=== PATIENT | female | born 1980 | race Hispanic/Latino ===

== ENCOUNTER 2024-02-19 18:13 | Emergency (ER) | payer SELFPAY ==
[2024-02-19] MEDS ORDERED: IBUPROFEN 400 MG TAB ONE (19:15)
--- NOTE | 2024-02-19 20:08 | RAD REPORT ---
EXAM DESCRIPTION: RAD - Foot Left 3 View - 02/19/2024 7:50 pm CLINICAL HISTORY: PAIN COMPARISON: No comparisons FINDINGS/IMPRESSION: No acute fracture. No malalignment. No significant focal degenerative changes.
--- NOTE | 2024-02-19 20:18 | EDPHYS ---
Physician Documentation [facility] Name: Mary Ann Lilly Age: 43 yrs Sex: Female : 1980 Arrival Date: 02/19/2024 Time: 18:13 Bed 15 Private MD: ED Physician Al Blanton HPI: 02/18 19:05 This 43 yrs old Female presents to ER via Wheelchair with complaints of Foot cp Injury. 19:05 The patient presents with an injury, pain, that is acute. The complaints affect the cp left foot. Context: resulted from a mis-step, the patient is not able to bear weight, the patient is not able to ambulate. Onset: The symptoms/episode began/occurred today. Associated signs and symptoms: The patient has no apparent associated signs or symptoms. 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 - Infectious Disease History:: Denies. - Social history:: Smoking status: Patient denies any tobacco usage or history of. ROS: 19:10 MS/extremity: Positive for pain, tenderness, of the left foot, Negative for deformity, cp 19:10 Neck: Negative for pain with movement, pain at rest, cp 19:10 Back: Negative for pain at rest, pain with movement, 19:10 All other systems are negative, Exam: 19:15 Constitutional: The patient appears in no acute distress, alert, awake, non-toxic, well cp developed, well nourished, uncomfortable, 19:15 Musculoskeletal/extremity: Extremities: noted in the left foot: pain, tenderness along lateral proximal foot, There is no evidence of deformity, Perfusion: the extremity is normally perfused throughout, the left foot Sensation intact. 19:15 Neuro: Orientation: to person, place \T\ time. Mentation: is normal, Motor: moves all fours, strength is normal, Vital Signs: 18:37 BP 147 / 96; Pulse 106; Resp 20 S; Temp 97.6(TE); Pulse Ox 98% on R/A; Weight 86.18 kg aa5 (R); Height 5 ft. 3 in. (R); 20:45 BP 136 / 77; Pulse 84; Resp 16; Pulse Ox 99% on R/A; pc2 18:37 Body Mass Index 33.66 (86.18 kg, 160.02 cm) aa5 MDM: 18:38 Patient medically screened. cp 20:17 Data reviewed: vital signs, nurses notes, radiologic studies, plain films. cp 20:17 I considered the following discharge prescriptions or medication management in the cp emergency department Medications were administered in the Emergency Department. See MAR. Independent interpretation of the following test(s) in the Emergency Department X-Ray: My interpretation is images of left foot negative for fracture. Counseling: I had a detailed discussion with the patient and/or guardian regarding the historical points, exam findings, and any diagnostic results supporting the discharge/admit diagnosis, radiology results, the need for outpatient follow up, a orthopedic surgeon, to return to the emergency department if symptoms worsen or persist or if there are any questions or concerns that arise at home. Response to treatment: the patient's symptoms have mildly improved after treatment, and as a result, I will discharge patient. 02/18 19:00 Order name: XRAY Foot LEFT 3 View; Complete Time: 20:16 cp 02/18 19:00 Order name: Ice pack; Complete Time: 19:34 cp 02/18 20:15 Order name: Juan Diego Wrap; Complete Time: 21:16 cp 02/18 20:15 Order name: Crutches; Complete Time: 21:16 cp Administered Medications: 19:34 Drug: Ibuprofen PO 800 mg PO once Route: PO; pc2 20:37 Follow up: Response: No adverse reaction pc2 Disposition Summary: 02/19/24 20:18 Discharge Ordered Notes: Location: Home cp Problem: new cp Symptoms: have improved cp Condition: Stable cp Diagnosis - Other sprain of left foot cp Followup: cp - With: Uziel Leary MD - When: 5 - 6 days - Reason: pain continues Discharge Instructions: - Discharge Summary Sheet cp - Elastic Bandage and RICE Therapy cp - Foot Sprain cp Forms: - Medication Reconciliation Form cp - Antibiotic Education cp - Prescription Opioid Use cp - Patient Portal Instructions cp - Leadership Thank You Letter cp Prescriptions: - Anaprox DS 550 mg Oral Tablet - take 1 tablet ORAL route every 12 hours As needed; 20 tablet; Refills: 0, cp Product Selection Permitted Signatures: Dispatcher [employer] EDMary Carmen Wilkerson, RN RN aa5 Al Murillo PA PA cp Coleman, Pam, RN RN pc2 Corrections: (The following items were deleted from the chart) 19:00 19:00 Foot Left 3 View+RAD.RAD.BRZ ordered. EDMS EDMS
--- NOTE | 2024-02-19 20:18 | ER ---
Nurse's Notes [facility] Name: Mary Ann Lilly Age: 43 yrs Sex: Female : 1980 Arrival Date: 02/19/2024 Time: 18:13 Bed 15 Private MD: Diagnosis: Other sprain of left foot Presentation: 02/18 18:37 Chief complaint: Patient states: twisted left foot standing up from desk and heard a aa5 "pop". pt c/o pain to left foot. 18:37 Coronavirus screen: At this time, the client does not indicate any symptoms associated aa5 with coronavirus-19. Ebola Screen: Patient denies travel to an Ebola-affected area in the 21 days before illness onset. Initial Sepsis Screen: Does the patient meet any 2 criteria? No. Patient's initial sepsis screen is negative. Does the patient have a suspected source of infection? No. Patient's initial sepsis screen is negative. Risk Assessment: Do you want to hurt yourself or someone else? Patient reports no desire to harm self or others. Onset of symptoms was February 19, 2024. 18:37 Acuity: GUILHERME 4 aa5 18:37 Method Of Arrival: Wheelchair aa5 Triage Assessment: 19:35 General: Appears in no apparent distress. well groomed, well developed, Behavior is pc2 calm, cooperative, appropriate for age. Pain: Complains of pain in left ankle Pain currently is 8 out of 10 on a pain scale. EENT: No signs and/or symptoms were reported regarding the EENT system. Neuro: Level of Consciousness is awake, alert, obeys commands, Oriented to person, place, time, situation. Respiratory: Airway is patent Respiratory effort is even, unlabored, Respiratory pattern is regular, symmetrical. GI: No signs and/or symptoms were reported involving the gastrointestinal system. : No signs and/or symptoms were reported regarding the genitourinary system. Derm: No signs and/or symptoms reported regarding the dermatologic system. Musculoskeletal: Circulation, motion, and sensation intact. Swelling present in left ankle Reports pain in left ankle rolled ankle walking. Injury Description: rolled ankle. 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 - Infectious Disease History:: Denies. - Social history:: Smoking status: Patient denies any tobacco usage or history of. Screenin:45 [facility] ED Fall Risk Assessment (Adult) History of falling in the last 3 months, db including since admission No falls in past 3 months (0 pts) Confusion or Disorientation No (0 pts) Intoxicated or Sedated No (0 pts) Impaired Gait No (0 pts) Mobility Assist Device Used No (0 pt) Altered Elimination No (0 pt) Score/Fall Risk Level 0 - 2 = Low Risk Oriented to surroundings, Maintained a safe environment. Abuse screen: Denies threats or abuse. Denies injuries from another. Nutritional screening: No deficits noted. Tuberculosis screening: No symptoms or risk factors identified. Assessment: 18:45 Reassessment: Patient appears in no apparent distress at this time. Patient and/or db family updated on plan of care and expected duration. Pain level reassessed. Patient is alert, oriented x 3, equal unlabored respirations, skin warm/dry/pink. General: Appears in no apparent distress. comfortable, Behavior is calm, cooperative. Neuro: Level of Consciousness is awake, alert, obeys commands, Oriented to person, place, time, situation. Vital Signs: 18:37 BP 147 / 96; Pulse 106; Resp 20 S; Temp 97.6(TE); Pulse Ox 98% on R/A; Weight 86.18 kg aa5 (R); Height 5 ft. 3 in. (R); 20:45 BP 136 / 77; Pulse 84; Resp 16; Pulse Ox 99% on R/A; pc2 18:37 Body Mass Index 33.66 (86.18 kg, 160.02 cm) aa5 ED Course: 18:22 Patient arrived in ED. mg5 18:37 Arm band placed on. aa5 18:38 Al Murillo PA is PHCP. cp 18:38 Al Blanton MD is Attending Physician. cp 18:43 Triage completed. aa5 18:45 Romelia Hanson, DAMARIS is Primary Nurse. db 18:45 Allergy band placed. Bed in low position. Call light in reach. Side rails up X 1. Pulse db ox on. NIBP on. Pillow given. 19:08 Report given to MEENA. db 19:09 Meena Rush, RN is Primary Nurse. pc2 19:34 Provided Education on: POC and time frame. pc2 19:34 X-ray(s) taken. pc2 19:34 No provider procedures requiring assistance completed. pc2 19:52 XRAY Foot LEFT 3 View In Process Unspecified. EDMS 20:17 Uziel Leary MD is Referral Physician. cp 20:50 Patient did not have IV access during this emergency room visit. pc2 20:50 Crutch training done. Juan Diego wrap to left ankle. pc2 Administered Medications: 19:34 Drug: Ibuprofen PO 800 mg PO once Route: PO; pc2 20:37 Follow up: Response: No adverse reaction pc2 Medication: 19:34 VIS not applicable for this client. pc2 Outcome: 20:18 Discharge ordered by MD. cp 20:50 Discharged to home ambulatory, with crutches, with family, pc2 20:50 Condition: stable 20:50 Discharge instructions given to patient, family, Instructed on discharge instructions, follow up and referral plans. medication usage, crutch walking, Demonstrated understanding of instructions, follow-up care, medications, crutch walking, Prescriptions given X 1, 21:17 Patient left the ED. pc2 Signatures: Dispatcher [employer] EDVA Mary Carmen Melara, RN RN aa5 Al Murillo PA PA cp Romelia Hanson, RN RN Hallie Lynn mg5 Meena Rush, RN RN pc2
[2024-02-19 21:21] VITALS: TEMP 97.6
[2024-02-19 21:23] VITALS: BP 136/77; O2SAT 99
== END 2024-02-19 21:17 | disposition home or self-care (01) ==
LOC: ER 18:13
DX: S93.692A Other sprain of left foot, initial encounter (principal)
CPT/HCPCS: 99284